=== PATIENT | male | born 2000 | race Caucasian/White ===

== ENCOUNTER 2024-04-06 18:07 | Emergency (ER) | payer SELFPAY ==
[2024-04-06 18:18] VITALS: BP 155/91; PULSE 92; RESP 18; TEMP 36.5; O2SAT 99
--- NOTE | 2024-04-06 18:29 | ED_ITS ---
HPI - URI/Sore Throat General Chief Complaint: Upper Respiratory Infection Stated Complaint: Cough/Vomiting Source: patient Mode of arrival: ambulatory Limitations: no limitations History of Present Illness HPI Narrative: 23 y/o male presented for c/o cough x3 weeks. Endorses vomiting in the mornings, nasal congestion, sore throat. Taking Dayquil. Denies sob,wheezing fever or lethargy. States he needs a work note. Pt vapes but has been using it less. Related Data Allergies Allergy/AdvReac Type Severity Reaction Status Date / Time No Known Allergies Allergy Verified 04/06/24 18:25 Review of Systems Review of Systems: CONSTITUTIONAL: Denies body aches, fever, chills, or sweats. EYES: Denies visual changes, redness, or discharge. ENT: Reports rhinorrhea, congestion, sore throat CARDIOVASCULAR: Denies chest pain, palpitations, or edema. RESPIRATORY: Reports cough, denies sob, wheezing. GASTROINTESTINAL: Denies abdominal pain, nausea, vomiting, or diarrhea. SKIN: Denies rash NEUROLOGIC: Denies headache All systems reviewed & are unremarkable except as noted in HPI and below PMFSH Comments At time of signature, I have reviewed and agree with nursing past medical, surgical, social and family history unless otherwise noted. Please see nursing chart for further information. There is no relevant family history pertinent to the presenting complaint Exam Narrative: GENERAL: Well-appearing, in no acute distress. EYES: EOMI. No redness or drainage. Conjunctivae normal. ENT: Mucous membranes pink and moist. No rhinorrhea. TMs normal bilaterally. Throat normal. Uvula midline. CHEST: No respiratory distress. Lungs clear to all sneed. HEART: Regular rate and rhythm. No murmur appreciated. ABDOMEN: Soft, nontender, nondistended, normal active bowel sounds. SKIN: Warm, dry, no rash. Capillary refill normal. Normal skin turgor. NEURO: Alert and oriented x3. Gait steady. PSYCH: Normal affect. Course Course Emergency Course: Patient is aware of diagnosis, understands and agrees to treatment plan. Anticipatory guidance given. Patient agrees to follow-up as directed and is aware of reasons to seek care at the emergency department. Portions of this record may have been created with voice recognition software Level of Care: Express Care Visit MDM - URI/Sore Throat MDM Narrative Medical decision making narrative: Discussed physical exam findings. Advised supportive measures and signs/symptoms to go to the ER. Pt is appropriate for outpt treatment and f/u. Differential Diagnosis Differential diagnosis: Likely upper respiratory infection, sinusitis, viral infection, bronchitis and pharyngitis Discharge Plan Discharge Clinical Impression: Bronchitis Patient Disposition: Home, Self-Care Condition: Stable Instructions: Antibiotic Form, Acute Bronchitis (ED) Additional Instructions: Acute bronchitis can be contagious because it is usually caused by infection with a virus or bacteria. It is usually for a few days but you can be contagious for up to one week. Take medication as directed Recommendations: over the counter Cough syrup may cause drowsiness; avoid driving or take it at night time. Tylenol 1000mg every 8 hours as needed for pain Flonase spray and Zyrtec (or Claritin/Sabina) if you have nasal congestion Symptomatic treatment includes: rest, fluids, and increase humidity of the air at home. Follow up with your primary care provider as needed in 1 week Go to the ER for worsening symptoms or concerns Patient Language: Peruvian Prescriptions: New prednisone 20 mg tablet 40 mg PO DAILY 5 Days Qty: 10 0RF amoxicillin-pot clavulanate 875-125 mg tablet 1 tablet PO Q12H 7 Days Qty: 14 0RF Follow-up/Referrals: PHYSICIAN,MAINTENANCE OF WAY SUPERINTENDENT [Primary Care Provider] - Stand Alone Forms: Work/School Release IP Time of Disposition: 18:33
== END 2024-04-06 18:33 | disposition home or self-care (01) ==
PROVIDERS: Emergency Provider Nurse Practitioner Family
DX: J40 Bronchitis, not specified as acute or chronic (principal)
CPT/HCPCS: 99203; G0463

== ENCOUNTER 2024-04-18 11:28 | Emergency (ER) | payer SELFPAY ==
[2024-04-18 11:32] VITALS: BP 150/98; PULSE 90; RESP 20; TEMP 37.2; O2SAT 100
--- NOTE | 2024-04-18 12:37 | ED.GENADULT ---
HPI - General Adult General Chief complaint: Upper Respiratory Infection Stated complaint: nausea/throat/cough Time Seen by Provider: 04/18/24 12:22 Source: patient and RN notes reviewed Mode of arrival: ambulatory Limitations: no limitations History of Present Illness HPI narrative: Patient presents today with a 2.5 week history of headache, sore throat, cough. He vomited once yesterday and 3 times today. Currently rates pain 6/10 and has been taking Tylenol and NyQuil with some relief. Patient was sick at the end of February as well with similar symptoms that improved for a few weeks before getting sick again. Related Data Allergies Allergy/AdvReac Type Severity Reaction Status Date / Time No Known Allergies Allergy Verified 04/18/24 11:49 Review of Systems Review of Systems: CONSTITUTIONAL: Denies body aches, fever, chills, or sweats. EYES: Denies visual changes, redness, or discharge. ENT: Denies rhinorrhea, congestion, or otalgia.+ sore throat CARDIOVASCULAR: Denies chest pain, palpitations, or edema. RESPIRATORY: Denies dyspnea.+ cough GASTROINTESTINAL: Denies abdominal pain, nausea, or diarrhea.+ vomiting GENITOURINARY: Denies dysuria or hematuria. SKIN: Denies rash, itching, or wounds. MUSCULOSKELETAL: Denies back pain, joint pain, or myalgia. NEUROLOGIC: Denies numbness, tingling, or weakness.+ headache PSYCH: Denies depression or anxiety. PMFSH Comments At time of signature, I have reviewed and agree with nursing past medical, surgical, social and family history unless otherwise noted. Please see nursing chart for further information. There is no relevant family history pertinent to the presenting complaint Exam Narrative: GENERAL: Well-appearing, well-nourished, and in no acute distress. HEAD: Normocephalic, atraumatic. EYES: EOMI. No redness or drainage. Conjunctivae normal. ENT: Mucous membranes pink and moist. Nares clear. No rhinorrhea. TMs normal bilaterally. Throat normal. Uvula midline. NECK: Normal AROM. Supple. No lymphadenopathy. CHEST: No respiratory distress. Clear to auscultation. HEART: Regular rate and rhythm. No murmur appreciated. ABDOMEN: Soft, nontender, nondistended, normal active bowel sounds. MUSCULOSKELETAL: No bony tenderness. EXTREMITIES: Normal range of motion. No edema. SKIN: Warm, dry, no rash. Capillary refill normal. Normal skin turgor. NEURO: No focal deficits. Alert and oriented x3. Gait steady. PSYCH: Normal affect. No signs of depression or anxiety. Course Course Level of Care: Express Care Visit Vital Signs Vital signs: Vital Signs Temperature 98.9 F 04/18/24 11:32 Pulse Rate 90 04/18/24 11:32 Respiratory Rate 20 04/18/24 11:32 Blood Pressure 150/98 H 04/18/24 11:32 Pulse Oximetry 100 04/18/24 11:32 Oxygen Delivery Room Air 04/18/24 11:32 Temperature 98.9 F 04/18/24 11:32 Pulse Rate 90 04/18/24 11:32 Respiratory Rate 20 04/18/24 11:32 Blood Pressure 150/98 H 04/18/24 11:32 Pulse Oximetry 100 04/18/24 11:32 Oxygen Delivery Room Air 04/18/24 11:32 Reviewed Medical Decision Making MDM Narrative Medical decision making narrative: Patient's symptoms are likely viral in etiology. Family members at home have also been recently ill. Prescription for Zofran sent to pharmacy. He is requesting a work note. This will also be printed for him. Anticipatory guidance given. ED precautions given. Differential Diagnosis Differential Diagnosis: Gastroenteritis, viral syndrome, URI, dehydration Vital Signs Vital Signs: Vital Signs Temperature 98.9 F 04/18/24 11:32 Pulse Rate 90 04/18/24 11:32 Respiratory Rate 20 04/18/24 11:32 Blood Pressure 150/98 H 04/18/24 11:32 Pulse Oximetry 100 04/18/24 11:32 Oxygen Delivery Room Air 04/18/24 11:32 Temperature 98.9 F 04/18/24 11:32 Pulse Rate 90 04/18/24 11:32 Respiratory Rate 20 04/18/24 11:32 Blood Pressure 150/98 H 04/18/24 11:32 Pulse Oximetry 100 04/18/24 11:32 Oxygen Delivery Room Air 04/18/24 11:32 Critical Care Time Critical Care Time Critical Care Time: No Discharge Plan Discharge Clinical Impression: Viral syndrome Patient Disposition: Home, Self-Care Condition: Stable Instructions: Viral Syndrome (ED) Additional Instructions: Please take the Zofran as prescribed. Rest and stay hydrated. Follow-up with a PCP next week if symptoms persist. As discussed, please go to the ER if symptoms worsen or you are unable to keep down fluids. Your blood pressure was elevated above 120/80 today at Urgent Care. This puts you above the threshold for follow up. Please schedule a followup visit with your personal physician as soon as possible, for further evaluation and treatment. Even blood pressure exceeding 120/80 may indicate pre-hypertension. Patient Language: Swedish Prescriptions: New ondansetron 4 mg tablet,disintegrating 4 mg PO TID PRN (Reason: nausea and vomiting) Qty: 10 0RF No Action prednisone 20 mg tablet 40 mg PO DAILY 5 Days Qty: 10 0RF amoxicillin-pot clavulanate 875-125 mg tablet 1 tablet PO Q12H 7 Days Qty: 14 0RF Follow-up/Referrals: PHYSICIAN,PRODUCT MARKETER [Primary Care Provider] - Stand Alone Forms: Work/School Release IP Time of Disposition: 12:41
== END 2024-04-18 12:41 | disposition home or self-care (01) ==
PROVIDERS: Emergency Provider Nurse Practitioner
DX: B34.9 Viral infection, unspecified (principal)
CPT/HCPCS: 99213; G0463

== ENCOUNTER 2025-03-29 15:40 | Emergency (ER) | payer SELFPAY ==
[2025-03-29 15:50] VITALS: BP 161/78; PULSE 103; RESP 18; TEMP 36.4; O2SAT 100
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
--- OUTSIDE RECORDS SUMMARY | 2025-03-29 16:48 | XMS_ITS | Clinical Summary ---
Author Organization [facility] Address [address] [place] [address] Phone Care Team Providers Care Continuous Still Operator Name Role Phone Unavailable Primary Care Provider Unavailabl e Allergies No known active allergies Medications No known medications Active Problems No known active problems Immunizations Immunization Administration Dates Next Due TDAP Vaccine 11/11/2022() Family History Medical History Relation Name Comments No Known Problems Brother 1 No Known Problems Brother 2 No Known Problems Father Alcohol Abuse Mother No Known Problems Sister 1 No Known Problems Sister 2 Relation Name Status Comments Brother 1 Alive Brother 2 Alive Father Alive Mother Sister 1 Alive Sister 2 Alive Social History Tobacco Use Types Packs/Day Years Used Date Smoking Tobacco: Former Cigarettes Smokeless Tobacco: Never Tobacco Cessation:Counseling Given: Not Answered Alcohol Use Standard Drinks/Week Comments Never 0 (1 standard drink = 0.6 oz pur e alcohol) Sex and Gender Information Value Date Recorded Sex Assigned at Not on file Legal Sex Male 11:59 PM CDT Gender Identity Not on file Sexual Orientation Not on file Last Filed Vital Signs Vital Sign Reading Time Taken Comments Blood Pressure 112/80 11/26/2022 7:05 AM CDT Pulse 63 11/26/2022 7:05 AM CDT Temperature 36.7 C (98 F) 11/26/2022 7:05 AM CDT Respiratory Rate 16 11/26/2022 7:05 AM CDT Oxygen Saturation 98% 11/26/2022 7:05 AM CDT Inhaled Oxygen Concentration - - Weight 53.9 kg (118 lb 14.4 oz) 11/26/2022 7:05 AM CDT Height 167.6 cm (5' 6) 11/26/2022 7:05 AM CDT Body Mass Index 19.19 11/26/2022 7:05 AM CDT Plan of Treatment Health Maintenance Due Date Last Done Comments Hepatitis C Virus (HCV) Screening 2002 TdaP Immunization 2002 Human Papillomavirus (HPV) Immunization (1 - Male 3-dose series) 2017 Meningococcal B Immunization (1 of 2 - Standard) 2018 Hepatitis B Immunization (1 of 3 - 19+ 3-dose series) 2021 Influenza Immunization (#1) 2024 SARS-COV-2 Immunization ( - season) 2024 Respiratory Syncytial Virus (RSV) Immunization (Adult) (1 - 1-dose 75+ series) 2077 Meningococcal Immunization (ACWY) Aged Out No longer eligible based on patient's age to complete this topic Pneumococcal Immunization Combined Aged Out No longer eligible based on patient's age to complete this topic Rotavirus Immunization Aged Out No lo nger eligible based on patient's age to complete this topic
== END 2025-03-29 16:37 | disposition home or self-care (01) ==
PROVIDERS: Emergency Provider Registered Nurse
DX: F41.9 Anxiety disorder, unspecified (principal); F17.210 Nicotine dependence, cigarettes, uncomplicated; F17.290 Nicotine dependence, other tobacco product, uncomplicated
CPT/HCPCS: 99213; G0463

== ENCOUNTER 2025-04-13 13:04 | Emergency (ER) | payer SELFPAY ==
[2025-04-13 13:16] VITALS: BP 169/90; PULSE 107; RESP 20; TEMP 36.7; O2SAT 100
[2025-04-13 13:28] LABS: EDCOVIDSCREEN Positive (Negative); EDINFLUASCREEN Negative (Negative); EDINFLUBSCREEN Negative (Negative)
--- OUTSIDE RECORDS SUMMARY | 2025-04-13 13:59 | XMS_ITS | Clinical Summary ---
Author Organization [facility] Address [address] [place] [address] Phone Care Team Providers Care Sales Account Leader Name Role Phone Provider, None Primary Care Provider Unavailabl e Allergies No known active allergies Medications No known medications Active Problems No known active problems Encounters Date Type Department Care Team Description 03/29/2025 7:27 PM PUMPER HELPER - 03/29/2025 10:00 PM PUMPER HELPER Emergency [facility] [address] [place] [address] Leonard Burt, RON Anxiety Discharge Disposition: Discharged to home or Selfcare 03/29/2025 Travel from Last 3 Months Immunizations Immunization Administration Dates Next Due TDAP [...] Sign Reading Time Taken Comments Blood Pressure 128/65 03/29/2025 9:45 PM PUMPER HELPER Pulse 96 03/29/2025 9:45 PM PUMPER HELPER Temperature 37.1 C (98.8 F) 03/29/2025 7:37 PM PUMPER HELPER Respiratory Rate 18 03/29/2025 9:45 PM PUMPER HELPER Oxygen Saturation 99% 03/29/2025 9:45 PM PUMPER HELPER Inhaled Oxygen Concentration - - Weight 54.4 kg (120 lb) 03/29/2025 7:37 PM PUMPER HELPER Height 167.6 cm (5' 6) 03/29/2025 7:37 PM PUMPER HELPER Body Mass Index 19.37 03/29/2025 7:37 PM PUMPER HELPER Plan of Treatment Health Maintenance Due Date Last Done Comments Hepatitis C Virus (HCV) Screening 2002 TdaP Immunization 2002 Varicella Immunization (1 of 2 - 13+ 2-dose series) 06/27/2015 Human Papillomavirus (HPV) Immunization (1 - Male [...] on patient's age to complete this topic Procedures Procedure Name Priority Date/Time Associated Diagnosis Comments CBC WITH AUTO DIFFERENTIAL STAT 03/29/2025 8:21 PM PUMPER HELPER TROPONIN I, HIGH SENSITIVITY (HSTRP) STAT 03/29/2025 8:21 PM PUMPER HELPER MAGNESIUM (MG) STAT 03/29/2025 8:21 PM PUMPER HELPER CMP (COMPREHENSIVE METABOLIC PANEL) STAT 03/29/2025 8:21 PM PUMPER HELPER COMPLETE BLOOD COUNT (CBC) WITH DIFF STAT 03/29/2025 8:21 PM PUMPER HELPER EKG 12 LEAD STAT 03/29/2025 7:34 PM PUMPER HELPER EKG SCAN 03/29/2025 12:00 AM PUMPER HELPER from Last 3 Months Results * TROPONIN I, HIGH SENSITIVITY (HSTRP) (03/29/2025 8:21 PM PUMPER HELPER) [facility] TROPONIN I, HIGH SENSITIVITY- BYRNES <2.7 <=35.0 ng/L 03/29/2025 9:29 PM PUMPER HELPER [facility] Comment: High-sensitivity troponin I results are reported in ng/L making the result appear to be 1,000 times higher than the contemporary troponin I value which is reported in ng/ml. Results from [facility]. Blood Venipuncture / Unknown 03/29/2025 8:21 PM PUMPER HELPER 03/29/2025 9:04 PM PUMPER HELPER Leonard Burt PAC CHEMISTRY ORDERABLES Final Result [facility] [address] [place] [address] * CBC with Auto Differential (03/29/2025 8:21 PM PUMPER HELPER) [facility] WBC 6.56 4.00 - 12.00 10(3)/mcL 03/29/2025 9:07 PM PUMPER HELPER [facility] RBC 5.10 4.40 - 5.80 10(6)/mcL 03/29/2025 9:07 PM PUMPER HELPER [facility] HEMOGLOBIN (HGB) 16.0 13.0 - 16.5 g/dL 03/29/2025 9:07 PM PUMPER HELPER [facility] HEMATOCRIT (HCT) 46.7 38.0 - 50.0 % 03/29/2025 9:07 PM PUMPER HELPER [facility] MCV 91.6 82.0 - 96.0 fL 03/29/2025 9:07 PM PUMPER HELPER [facility] MCH 31.4 26.0 - 32.0 pg 03/29/2025 9:07 PM PUMPER HELPER [facility] MCHC 34.3 31.0 - 36.0 g/dL 03/29/2025 9:07 PM [facility] PLATELET COUNT 204 140 - 440 10(3)/[facility] 03/29/2025 9:07 PM [facility] RDW 12.2 11.8 - 15.5 % 03/29/2025 9:07 PM [facility] MPV 10.9 8.0 - 12.6 fL 03/29/2025 9:07 PM [facility] NEUTROPHILS 67.0 40.0 - 68.0 % 03/29/2025 9:07 PM [facility] LYMPHOCYTES 23.2 19.0 - 49.0 % 03/29/2025 9:07 PM [facility] MONOCYTES 7.3 3.0 - 13.0 % 03/29/2025 9:07 PM [facility] EOSINOPHILS 2.0 0.0 - 8.0 % 03/29/2025 9:07 PM [facility] BASOPHILS 0.2 0.0 - 1.0 % 03/29/2025 9:07 PM [facility] IMMATURE GRANULOCYTE 0.3 0.0 - 0.4 % 03/29/2025 9:07 PM [facility] ABSOLUTE NEUTROPHILS 4.40 1.40 - 5.30 10(3)/[facility] 03/29/2025 9:07 PM [facility] ABSOLUTE LYMPHOCYTES 1.52 0.90 - 3.30 10(3)/[facility] 03/29/2025 9:07 PM [facility] ABSOLUTE MONOCYTES 0.48 0.10 - 0.90 10(3)/[facility] 03/29/2025 9:07 PM [facility] ABSOLUTE EOSINOPHIL 0.13 0.00 - 0.50 10(3)/[facility] 03/29/2025 9:07 PM [facility] ABSOLUTE BASOPHILS 0.01 0.00 - 0.10 10(3)/[facility] 03/29/2025 9:07 PM [facility] ABSOLUTE IMMATURE GRANULOCYTE 0.02 0.00 - 0.03 10 (3) mcL. 03/29/2025 9:07 PM PUMPER HELPER [facility] NRBC PER 100 WBC 0 03/29/20 9:07 PM PUMPER HELPER [facility] Blood Venipuncture / Unknown 03/29/2025 8:21 PM PUMPER HELPER 03/29/2025 9:04 PM PUMPER HELPER Leonard Burt PAC HEMATOLOGY ORDERABLE S Final Result Performing Organization Address City/[facility]/ZIP Co de Phone Number [facility] [address] [place] [address] * Magnesium (03/29/2025 8:21 PM PUMPER HELPER) Pathologist [facility] MAGNESIUM 2.2 1.6 - 2.6 mg/dL 03/29/2025 9:33 PM PUMPER HELPER [facility] Blood Venipuncture / Unknown 03/29/2025 8:21 PM PUMPER HELPER 03/29/2025 9:04 PM PUMPER HELPER Leonard Burt PAC CHEMISTRY ORDERABLES Final Result Performing Organization Address City/[facility]/ZIP Co de Phone Number [facility] [address] [place] [address] * (ABNORMAL) CMP (03/29/2025 8:21 PM PUMPER HELPER) SODIUM 140 136 - 145 mmol/L 03/29/2025 9:43 PM PUMPER HELPER [facility] POTASSIUM 3.7 3.5 - 5.1 mmol/L 03/29/2025 9:43 PM PUMPER HELPER [facility] CHLORIDE 104 98 - 107 mmol/L 03/29/2025 9:43 PM PUMPER HELPER [facility] CO2, VENOUS 25 22 - 30 mmol/L 03/29/2025 9:43 PM PUMPER HELPER [facility] ANION GAP 14.7 <18.0 mmol/L 03/29/2025 9:43 PM PUMPER HELPER [facility] GLUCOSE 93 70 - 99 mg/dL 03/29/2025 9:43 PM [facility] BUN 16 9 - 21 mg/dL 03/29/2025 9:43 PM [facility] CREATININE, BLOOD 0.87 0.70 - 1.30 mg/dL 03/29/2025 9:43 PM [facility] BUN/CREATININE RATIO 18 12 - 20 ratio 03/29/2025 9:43 PM [facility] TOTAL PROTEIN 8.4(H) 6.0 - 8.0 g/dL 03/29/2025 9:43 PM [facility] ALBUMIN 5.0 3.5 - 5.0 g/dL 03/29/2025 9:43 PM [facility] A/G RATIO 1.5 1.0 - 2.2 03/29/2025 9:43 PM [facility] CALCIUM 9.9 8.7 - 10.5 mg/dL 03/29/2025 9:43 PM [facility] T BILI 0.3 0.2 - 1.2 mg/dL 03/29/2025 9:43 PM [facility] SGOT (AST) 36 <43 U/L 03/29/2025 9:43 PM [facility] SGPT (ALT) 49 <56 U/L 03/29/2025 9:43 PM [facility] ALKALINE PHOSPHATASE 37(L) 40 - 150 U/L 03/29/2025 9:43 PM [facility] GFR, ESTIMATED >60 >=60 03/29/2025 9:43 PM [facility] Comment: Creatinine Clearance is the preferred criteria for selecting drug dose adjustments in renally impaired patients. The GFR is provided as additional pertinent clinical information. GFR is reported in mL/min/1.73 sq m. Calculation based on the 2020 Chronic Kidney Disease Epidemiology Collaboration (CKD-EPI) equation refit without adjustment for race. GFR, EST. >60 >=60 025 9:43 PM [facility] Comment: Creatinine Clearance is the preferred criteria for selecting drug dose adjustments in renally impaired patients. The GFR is provided as additional pertinent clinical information. GFR is reported in mL/min/1.73 sq m. Calculation based on the 2009 Chronic Kidney Disease Epidemiology Collaboration (CKD-EPI). GFR, EST. NONAFRICAN >60 >=60 03/29/2025 9:43 PM PUMPER HELPER [facility] Comment: Creatinine Clearance is the preferred criteria for selecting drug dose adjustments in renally impaired patients. The GFR is provided as additional pertinent clinical information. GFR is reported in mL/min/1.73 sq m. Calculation based on the 2009 Chronic Kidney Disease Epidemiology Collaboration (CKD-EPI). Blood Venipuncture / Unknown 03/29/2025 8:21 PM PUMPER HELPER 03/29/2025 9:04 PM PUMPER HELPER Leonard Burt PAC CHEMISTRY ORDERABLES Final Result [facility] [address] [place] [address] * EKG 12 LEAD (03/29/2025 7:34 PM PUMPER HELPER) Ventricular Rate 105 BPM EXTERNAL EKG Atrial Rate 105 BPM EXTERNAL EKG P-R Interval 156 ms EXTERNAL EKG QRS Duration 112 ms EXTERNAL EKG Q-T Duration 320 ms EXTERNAL EKG QTC CALCULATION 422 ms EXTERNAL EKG P [place] 75 degrees EXTERNAL EKG R [place] 62 degrees EXTERNAL EKG T [place] 50 degrees EXTERNAL EKG 03/29/2025 7:34 PM PUMPER HELPER Impressions EXTERNAL EKG - 03/30/2025 1:02 PM PUMPER HELPER Sinus tachycardia Incomplete right bundle branch block Borderline ECG No previous ECGs available Confirmed by OZ GAYLE ([id number]) on 03/30/2025 1:02:15 PM Narrative Procedure Note Oz Gayle MD - 03/30/2025 IMPRESSION: Sinus tachycardia Incomplete right bundle branch block Borderline ECG No previous ECGs available Confirmed by OZ GAYLE ([id number]) on 03/30/2025 1:02:15 PM us Jason Kc MD IMG ECG ORDERABLES Final Result EXTERNAL EKG * EKG SCAN (03/29/2025 12:00 AM PUMPER HELPER) 03/29/2025 us Provider Scan IMG ECG ORDERABLES Final Result RESULTING AGENCY from Last 3 Months Insurance [facility] Care Teams Sales Account Leader Relationship Specialty Start Date End Date Provider, None [place] PCP - General 03/29/25
--- NOTE | 2025-04-13 14:11 | ED_ITS ---
HPI - URI/Sore Throat General Chief Complaint: Upper Respiratory Infection Stated Complaint: covid test Time Seen by Provider: 04/13/25 14:00 Source: patient and RN notes reviewed Mode of arrival: ambulatory Limitations: no limitations History of Present Illness HPI Narrative: 24-year-old male patient presents Express Care requesting COVID test, patient's girlfriend just tested positive for COVID patient is having similar symptoms. Patient her complains of cough, congestion, chest congestion, nausea, vomiting, fevers, body aches, chills. Patient denies any other symptoms. Patient denies any chest pain difficulty breathing. Patient of the keep fluids down since he has vomited, he denies any diarrhea or abdominal pain. Patient taking DayQuil NyQuil for symptoms. Patient denies any significant past medical problems. Related Data Allergies Allergy/AdvReac Type Severity Reaction Status Date / Time No Known Allergies Allergy Verified 04/13/25 13:19 Review of Systems Review of Systems: CONSTITUTIONAL: Positive for fevers, body aches, chills. Negative for sweats. EYES: Denies visual changes, redness, or discharge. ENT: Positive for congestion. Negative for rhinorrhea, sore throat, or otalgia. CARDIOVASCULAR: Denies chest pain, palpitations, or edema. RESPIRATORY: Positive for cough and chest congestion. Negative for wheezing or dyspnea. GASTROINTESTINAL: Denies abdominal pain, or diarrhea. Positive for vomiting and nausea. GENITOURINARY: Denies dysuria or hematuria. SKIN: Denies rash or itching. MUSCULOSKELETAL: Denies back pain, joint pain, or myalgia. NEUROLOGIC: Denies headache, numbness, or weakness. PSYCHIATRIC: Denies anxiety or depression. All other systems reviewed are negative, except as documented in HPI. [facility] Past Medical History Medical History Bronchitis Social History Social History Smoking status: Current every day smoker Tobacco type: cigarettes and e-cigarettes/vaping Alcohol intake: never Substance use: never Living arrangements: with family Gender identity (if verbalized by the patient): Male Comments At the time of my signature, I reviewed and agree with the nursing past medical, surgical, social, and family history. There is no relevant family history pertinent to the patient complaint. Exam Narrative: GENERAL: This is a well-nourished, well-developed adult, in no apparent distress. They are non ill-appearing, nontoxic appearing. HEAD: normocephalic, atraumatic. EYES: Sclera clear/white. Conjunctiva normal. Vision is grossly intact. Extraocular movements intact EARS: External ears normal, auditory canals clear and without drainage, TMs normal without perforation. Hearing grossly intact. NOSE: External nose normal with no obvious nasal discharge, nasal turbinates erythematous, no rhinorrhea. THROAT: Mucous membranes moist, posterior pharynx erythematous with PND. Uvula midline. NECK: Neck supple, non-tender without lymphadenopathy, masses or thyromegaly. CARDIOVASCULAR: Tachycardic rate and rhythm without murmurs, gallops, or rubs. RESPIRATORY: Clear to auscultation. Breath sounds equal bilaterally. No wheezes, rales, or rhonchi. GASTROINTESTINAL: Abdomen soft, non-tender, nondistended. Bowel sounds are active. No hepato-splenomegaly, or palpable masses. No guarding or rigidity. No rebound tenderness. SKIN: warm, Dry, intact with no suspicious lesions or rash, good texture and turgor. NEURO: awake, alert, and oriented to person, place and time. There were no obvious focal neurologic abnormalities. EXTREMITIES: No joint tenderness, effusion, or edema noted. BACK: Nontender without deformity. No CVA tenderness. Course Course Level of Care: Express Care Visit Vital Signs Vital signs: Vital Signs Temperature 98.1 F 04/13/25 13:16 Pulse Rate 107 H 04/13/25 13:16 Respiratory Rate 20 04/13/25 13:16 Blood Pressure 169/90 H 04/13/25 13:16 Pulse Oximetry 100 04/13/25 13:16 Oxygen Delivery Room Air 04/13/25 13:16 Temperature 98.1 F 04/13/25 13:16 Pulse Rate 107 H 04/13/25 13:16 Respiratory Rate 20 04/13/25 13:16 Blood Pressure 169/90 H 04/13/25 13:16 Pulse Oximetry 100 04/13/25 13:16 Oxygen Delivery Room Air 04/13/25 13:16 [facility] Narrative Medical decision making narrative: Rapid COVID positive. Negative flu. No peritoneal findings on exam. Patient nontoxic appearing, no apparent distress vital signs hemodynamically stable, mild tachycardia, patient does not clinically appear dehydrated, moist mucous membranes. Will send patient home with Zofran as needed for nausea and vomiting. Discussed supportive care. Discussed physical exam findings. Advised supportive measures and signs/symptoms to go to the ER. Pt is appropriate for outpt treatment and f/u. Differential Diagnosis Differential Diagnosis: Differential diagnostic considerations for upper respiratory infection include upper respiratory infection, croup, otitis media, sinusitis, viral infection, bronchitis, influenza, pharyngitis, strep, uvulitis, gastroenteritis, gastritis. Lab Data MDM Lab Attestation statement: I personally reviewed the patient's lab results. Labs: Lab Results 04/13/25 Range/Units 13:17 POC Influenza A Ag Negative (Negative) POC Influenza B Ag Negative (Negative) POC SARS CoV-2 Ag Positive (Negative) Critical Care Time Critical Care Time Critical Care Time: No Discharge Plan Discharge Clinical Impression: COVID Patient Disposition: Home Condition: Stable Instructions: COVID-19 (Coronavirus Disease 2019) (ED) Additional Instructions: You should avoid crowds until you are fever free for 24 hours without the use of fever reducing medications, or the symptoms are improved Rest. Drink plenty of fluids. You may take ibuprofen 600 mg to 800 mg every 6-8 hours. Do not exceed more than 800 mg of ibuprofen per dose. Do not exceed more than 3200 mg ibuprofen in a day. You may take up to 1000 mg Tylenol every 6-8 hours. Do not exceed 1000 mg per dose, do exceed more than 4000 mg of Tylenol in a day. If you take DayQuil NyQuil do not take any Tylenol as this medication artery contains Tylenol in it. Recommend Flonase spray and Zyrtec (or Claritin/Sabina) for sinus pressure/congestion over the counter Cough syrup may cause drowsiness; avoid driving or take it at night time. Take Zofran as needed for nausea and vomiting. Follow up with your primary care provider 3-5 days Go to the ER for worsening symptoms, chest pain, difficulty breathing, unable to talk in full sentences, uncontrollable vomiting, or other serious concerns Patient Language: Latvian Prescriptions: New ondansetron 4 mg tablet,disintegrating 4 mg PO Q8H PRN (Reason: nausea and vomiting) Qty: 12 0RF Follow-up/Referrals: UNKNOWN,DOCTOR [Primary Care Provider] Stand Alone Forms: Work/School Release IP Time of Disposition: 14:04
== END 2025-04-13 14:08 | disposition home or self-care (01) ==
DX: U07.1 COVID-19 (principal); F17.210 Nicotine dependence, cigarettes, uncomplicated; F17.290 Nicotine dependence, other tobacco product, uncomplicated
CPT/HCPCS: 87426; 87804; 99213; G0463